=== PATIENT | male | born 1980 | race Caucasian/White ===

== ENCOUNTER 2017-03-07 09:01 | Day surgery (SDC) | payer OTHER ==
[~2017-03-07 09:01] MED LIST: LIDOCAINE 2% VISCOUS(20 MG/1 ML) - 15 ML UD CUP PO ONE; LIDOCAINE W/ SODIUM BICARB 0.5 ML SYR ONE; Lactated Ringers 1,000 ML PRIMARY IV ONE; fentaNYL Inj 100 MCG/2 ML VIAL ONE
[2017-03-07 09:25] VITALS: RESP 20
--- NOTE | 2017-03-07 11:18 | GEN.OPNOTE ---
EGD / Colonoscopy Report Surgery Date: 03/07/17 Preoperative Diagnosis: GERD. Change in bowel habits. Family history of colon cancer. Diarrhea. Bright red blood per rectum. Postoperative Diagnosis: Same with small gastric polyp. Procedure: #1 esophagogastroduodenoscopy with biopsy. #2 complete colonoscopy with multiple random biopsies. Surgeon: Tahir Sharif MD Anesthesia Provider: David Castillo CRNA Anesthesia Type: MAC Indications: See preoperative diagnosis. EGD Findings: Esophagus: [Normal] GE Junction : [Mild inflammation] Fundus : [Normal] Body : [Gastric body polyp biopsied] Prepyloric : [Normal] Small Intestine : [Normal] A lubricated flexible upper endoscope was inserted and passed through the esophagus and stomach into the duodenum. The duodenum and duodenal bulb were unremarkable. Pyloric channel was widely patent. Visually it they stomach looked normal except for a small polyp which was biopsied. With his history of reflux antral biopsies were taken. Hemostasis was assured. The scope was withdrawn into the distal esophagus. There is chronic reflux biopsies were taken at and above the Z line. Hemostasis was assured. The scope was withdrawn through the remainder of a normal-appearing esophagus and brought through the hypopharynx under suction completing the procedure. Colonoscopy Findings: Prep : [poor, lots of retained stool.] Cecum : [No gross abnormalities] Ascending : [No gross abnormalities] Transverse : [No gross abnormalities] Sigmoid : [No gross abnormalities] Rectum : [No gross abnormalities] Digital Rectal Exam : [No abnormal findings] A lubricated flexible colonoscope was inserted and passed to the blind end of the cecum. There was a lot of retained stool. Small polyps could've been missed. I saw most of the mucosa. The stool was tenacious and solids that was not amenable to irrigating clear. Visually the entire colonoscopy was normal. Random biopsies were taken on the right colon, transverse colon, sigmoid colon, and rectum. There is no evidence of polyps, tumors, neoplastic masses, infectious or inflammatory processes identified. The scope was withdrawn completing the procedure. Patient tolerated the procedure well without complication. He was taken to outpatient surgery in stable condition. Follow-up will be in my office on an as-needed basis. We'll consider stool studies pending the biopsy results. We will call the biopsy results when available and plan therapy and follow-up accordingly.
[2017-03-07 12:00] VITALS: TEMP 97.8
== END 2017-03-07 11:30 | disposition home or self-care (01) ==
LOC: SDSC 09:01
PROVIDERS: ATTEND Surgery
DX: K21.9 Gastro-esophageal reflux disease without esophagitis (principal); R19.4 Change in bowel habit; Z80.0 Family history of malignant neoplasm of digestive organs; R19.7 Diarrhea, unspecified; K62.5 Hemorrhage of anus and rectum
CPT/HCPCS: 43239; 45380; J2704; J3010; J7120